=== PATIENT | female | born 1980 | race Caucasian/White ===

== ENCOUNTER 2020-02-09 00:06 | Emergency (ER) | payer BC ==
[~2020-02-09] VITALS: Ht 165.1 cm; Wt 72.5 kg
[2020-02-09] MEDS ORDERED: METOCLOPRAMIDE HCL 10 MG/2 ML VIAL. IVP ONE (00:30)
[2020-02-09] MEDS ORDERED: IV NORMAL SALINE 1,000ML 1,000 ML IV SCH (00:30)
[2020-02-09] MEDS ORDERED: FAMOTIDINE 20 MG/2 ML VIAL IVP ONE (00:45)
[2020-02-09] MEDS ORDERED: CONTRAST GIVEN. MC PRN (01:00)
[2020-02-09] MEDS ORDERED: IOHEXOL 300 MG/ML 75 ML VIAL. IV ONE (01:00)
[2020-02-09] MEDS ORDERED: IOHEXOL 240 MG/ML 50ML VIAL. PO ONE (01:00)
[2020-02-09 01:02] LABS: BASO % 0 % (0-3); EOS # 0.3 x10^3/uL (0.0-0.7); EOS % 6 % (0-3); HEMATOCRIT 36.4 % (36.0-47.0); HEMOGLOBIN 11.5 g/dL (12.0-15.5); LYMPH % 36 % (24-48); MEAN CORPUSCULAR HEMOGLOBIN 27 pg (25-35); MEAN CORPUSCULAR HGB CONC 32 g/dL (31-37); MEAN CORPUSCULAR VOLUME 84 fL (79-100); MONO # 0.5 x10^3/uL (0.0-1.1); MONO % 9 % (0-9); NEUT # 2.7 x10^3uL (1.8-7.7); NEUT % 49 % (31-73); PLATELET COUNT 227 x10^3/uL (140-400); RED BLOOD COUNT 4.32 x10^6/uL (3.50-5.40); RED CELL DISTRIBUTION WIDTH 14.1 % (11.5-14.5); WHITE BLOOD COUNT 5.5 x10^3/uL (4.0-11.0)
[2020-02-09 01:10] LABS: CALCIUM 8.7 mg/dL (8.5-10.1); GFR 62.1; POTASSIUM 3.7 mmol/L (3.5-5.1)
[2020-02-09 01:16] LABS: ALBUMIN 3.4 g/dL (3.4-5.0); TOTAL BILIRUBIN 0.5 mg/dL (0.2-1.0); TOTAL PROTEIN 6.9 g/dL (6.4-8.2)
--- NOTE | 2020-02-09 01:26 | PHYS DOC ---
Past History Past Medical History: No Pertinent History Past Surgical History: Cholecystectomy, Gastric Bypass, Other Additional Past Surgical Histo: sinus surgery Alcohol Use: None General Adult EDM: Chief Complaint: FLANK PAIN HPI: HPI: Patient is a 39 year old female who presents for evaluation of moderate severe right flank and right upper quadrant abdominal pain. Onset of symptoms over the past 1 day. Symptoms particular worse of the past 1/2 hours. Patient had 3 episodes of vomiting. Patient denies any black, bloody or tarry stools. Patient was recently diagnosed with Covid infection on January 28 and just came off quarantine. Patient has a history of prior gastric bypass surgery. Patient was in moderate distress on arrival. Review of Systems: Review of Systems: Constitutional: Denies fever or chills Eyes: Denies change in visual acuity HENT: Denies nasal congestion or sore throat Respiratory: Denies cough or shortness of breath Cardiovascular: Denies chest pain or edema GI: right upper abdominal pain with nausea and vomiting, no bloody stools or diarrhea : Denies dysuria Musculoskeletal: Denies back pain or joint pain Integument: Denies rash Neurologic: Denies headache, focal weakness or sensory changes Endocrine: Denies polyuria or polydipsia Lymphatic: Denies swollen glands Psychiatric: Denies depression or anxiety Current Medications: Current Meds: Current Medications Medications (Trade) Dose Ordered Sig/Pérez Start Time Stop Time Status Last Admin Dose Admin Famotidine (Pepcid Vial) 20 mg 1X ONCE 02/09/20 00:45 02/09/20 00:48 DC 02/09/20 00:50 20 MG Fentanyl Citrate (Fentanyl 2ml Vial) 50 mcg 1X ONCE 02/09/20 01:00 02/09/20 01:01 DC 02/09/20 01:20 50 MCG Info (Do NOT chart on this entry -- for MONITORING) 1 each PRN DAILY PRN 02/09/20 01:00 02/11/20 00:59 Iohexol (Omnipaque 240 Mg/ml) 30 ml 1X ONCE 02/09/20 01:00 02/09/20 01:01 DC Iohexol (Omnipaque 300 Mg/ml) 75 ml 1X ONCE 02/09/20 01:00 02/09/20 01:01 DC Metoclopramide HCl (Reglan Vial) 10 mg 1X ONCE 02/09/20 00:30 02/09/20 00:48 DC 02/09/20 00:46 10 MG Sodium Chloride 1,000 ml @ 1,000 mls/hr Q1H 02/09/20 00:30 02/09/20 01:29 02/09/20 00:48 1,000 MLS/HR Allergies: Allergies: Allergies Coded Allergies Type Severity Reaction Last Updated Verified No Known Allergies Allergy Unknown 02/09/20 Yes Physical Exam: PE: Constitutional: Well developed, well nourished, moderate acute distress. [] HENT: Normocephalic, atraumatic, bilateral external ears normal, oropharynx moist, no oral exudates, nose normal. [] Eyes: PERRL, EOMI, conjunctiva normal, no discharge. [] Neck: Normal range of motion, no tenderness, supple. [] Cardiovascular:Heart rate regular rhythm, no murmur [] Lungs & Thorax: Bilateral breath sounds clear to auscultation [] Abdomen: Bowel sounds diminished, soft, moderate right upper abdominal tenderness, no masses. [] Skin: Warm, dry, no erythema, no rash. [] Back: No tenderness. [] Extremities: No tenderness, no cyanosis, ROM intact, no edema. [] Neurologic: Alert and oriented, normal motor function, normal sensory function, no focal deficits noted. [] Psychologic: Affect normal, judgement normal, mood abnormal. [] Current Patient Data: Labs: Laboratory Tests Test 02/09/20 00:40 White Blood Count 5.5 x10^3/uL (4.0-11.0) Red Blood Count 4.32 x10^6/uL (3.50-5.40) Hemoglobin 11.5 g/dL (12.0-15.5) L Hematocrit 36.4 % (36.0-47.0) Mean Corpuscular Volume 84 fL (79-100) Mean Corpuscular Hemoglobin 27 pg (25-35) Mean Corpuscular Hemoglobin Concent 32 g/dL (31-37) Red Cell Distribution Width 14.1 % (11.5-14.5) Platelet Count 227 x10^3/uL (140-400) Neutrophils (%) (Auto) 49 % (31-73) Lymphocytes (%) (Auto) 36 % (24-48) Monocytes (%) (Auto) 9 % (0-9) Eosinophils (%) (Auto) 6 % (0-3) H Basophils (%) (Auto) 0 % (0-3) Neutrophils # (Auto) 2.7 x10^3uL (1.8-7.7) Lymphocytes # (Auto) 2.0 x10^3/uL (1.0-4.8) Monocytes # (Auto) 0.5 x10^3/uL (0.0-1.1) Eosinophils # (Auto) 0.3 x10^3/uL (0.0-0.7) Basophils # (Auto) 0.0 x10^3/uL (0.0-0.2) Sodium Level 138 mmol/L (136-145) Potassium Level 3.7 mmol/L (3.5-5.1) Chloride Level 102 mmol/L (98-107) Carbon Dioxide Level 24 mmol/L (21-32) Anion Gap 12 (6-14) Blood Urea Nitrogen 14 mg/dL (7-20) Creatinine 1.0 mg/dL (0.6-1.0) Estimated GFR (Cockcroft-Gault) 62.1 BUN/Creatinine Ratio 14 (6-20) Glucose Level 149 mg/dL (70-99) H Calcium Level 8.7 mg/dL (8.5-10.1) Total Bilirubin 0.5 mg/dL (0.2-1.0) Aspartate Amino Transferase (AST) 30 U/L (15-37) Alanine Aminotransferase (ALT) 26 U/L (14-59) Alkaline Phosphatase 86 U/L (46-116) Total Protein 6.9 g/dL (6.4-8.2) Albumin 3.4 g/dL (3.4-5.0) Albumin/Globulin Ratio 1.0 (1.0-1.7) Lipase 147 U/L (73-393) Vital Signs: Vital Signs Date Time Temp Pulse Resp B/P (MAP) Pulse Ox O2 Delivery O2 Flow Rate FiO2 02/09/20 01:20 99 02/09/20 01:11 Room Air 02/09/20 00:06 97.6 56 16 119/74 (89) EKG: EKG: [] Radiology/Procedures: Radiology/Procedures: [] Heart Score: Risk Factors: Risk Factors: DM, Current or recent (<one month) smoker, HTN, HLP, family history of CAD, obesity. Risk Scores: Score 0 - 3: 2.5% MACE over next 6 weeks - Discharge Home Score 4 - 6: 20.3% MACE over next 6 weeks - Admit for Clinical Observation Score 7 - 10: 72.7% MACE over next 6 weeks - Early Invasive Strategies Course & Med Decision Making: Course & Med Decision Making Pertinent Labs and Imaging studies reviewed. (See chart for details) [] Yaya Disclaimer: Yaya Disclaimer: This electronic medical record was generated, in whole or in part, using a voice recognition dictation system. 0122 patient has refused to take oral contrast. She states that she is quite sure that this is not a gastric leak. I advised her that refusing oral contrast could result in a ct abd/pelvis scan that may not diagnose an emergency c ondition related to her prior gastric bypass surgery. 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 0254 as requested by patient the [facility] was contacted. I talked to the transfer line and gave a full report. Currently they are on high-volume. They will look for a bed and when one is available they will contact us back. Patient did not want to transfer to any other facility at this time. In the meantime patient is medically stable. She has not yet given us a urine sample. 0310 patient aware that [facility] could be a several hour wait. She says that she does not want to wait that long. She is requested that we call another hospital to see if they have a bed available. [facility] transfer line will be called at this time. I called and Dr. Neal is aviation technical systems specialist pending bed availability. However, they need a current Covid test. That means patient could be transferred to [facility] and wait and their ED pending a Covid test. If that test is still positive they would then transfer her over to [facility]. They have not accepted the patient yet but will call us back 0330 Dr. Solorzano from [facility] surgery called to discuss case. He did not want to accept the patient now. He requested that we admit the patient to an internal medicine service and call them in 3 days if the patient is not better. 0340 patient has changed her mind again. She wants to see if there is a bed available at [facility]. Patient states that she does not want to be admitted to [facility]. That would be her ultimate receiving hospital if she was Covid positive in the ER at [facility] 0358 there is a bed available at [facility] and patient would prefer to go there at this time. The on-call for hospitalist service was called to discuss case. Dr. Smallwood would be the accepting hospitalist. 0405 Dr. Smallwood called back to discuss case. He will accept case on the condition that we talk to general surgery aviation technical systems specialist at [facility]. If they accept the consult he will accept the patient in transfer 0411 Dr. Calix call back for general surgery. He will see patient in consult. Patient will admitted to internal medicine service under the care of Dr. Smallwood. 0415 patient refused ambulance transport. She will be transported by family via private vehicle. She was advised that refusing ambulance transfer could result in a crash, or disability. Because we knew she was never going to take an ambulance we did not start a nasogastric tube in this ER Departure Departure: Impression: Primary Impression: Right sided abdominal pain Additional Impressions: Partial bowel obstruction Qualified Codes: K56.600 - Partial intestinal obstruction, unspecified as to cause History of gastric bypass Disposition: 05 DC/TRF OTHER TYPE INSTITUTI (Dr. Smallwood accepted for Hospitalist service) Condition: STABLE Referrals: JULIO LAM (PCP) RADHA SWAN DO Feb 09, 2020 01:25
[2020-02-09 01:58] LABS: PREG TEST PT QUAL NEGATIVE (NEG)
--- NOTE | 2020-02-09 02:45 | RAD ---
CT SCAN OF THE ABDOMEN AND PELVIS WITH IV CONTRAST. History: Reason: RUQ abd pain, hx gastric bypass surgery / Spl. Instructions: OMNI 300, 75ml / History: Comparison:None. Procedure: Contiguous axial images of the abdomen and pelvis were performed after the administration of 75 cc of Omni 300 IV contrast. Oral contrast: No. Findings: There is evidence of gastric bypass. The appendix is normal. The gallbladder has been removed. There is mild wall thickening of the distal sigmoid colon and there is distention of the remaining colon. Liver: Mild to moderate periportal edema Spleen: Unremarkable Pancreas: Unremarkable Adrenal Glands: Unremarkable Kidneys: Unremarkable There is no mass or lymphadenopathy. There is no free air. There is mild free fluid in the pelvis. The urinary bladder appears normal. Impression: 1. Periportal edema in the liver. This is nonspecific but can be secondary to hepatitis. Per 2. Short segment of mild wall thickening of the distal sigmoid colon could be colitis or adenocarcinoma. There is distention of the remaining colon consistent with obstructive changes. 3. Mild free fluid in the pelvis. End impression PQRS Compliance Statement: One or more of the following individualized dose reduction techniques were utilized for this examination: 1. Automated exposure control 2. Adjustment of the mA and/or kV according to patient size 3. Use of iterative reconstruction technique Electronically signed by: Shlomo Islas III, MD (02/09/2020 2:42 AM) [facility]
[2020-02-09 04:35] VITALS: BP 112/68
== END 2020-02-09 04:35 | disposition short-term general hospital (02) ==
LOC: ER 00:06
DX: K56.600 Partial intestinal obstruction, unspecified as to cause (principal); Z98.84 Bariatric surgery status; Z90.49 Acquired absence of other specified parts of digestive tract; R11.2 Nausea with vomiting, unspecified
CPT/HCPCS: 36415; 74177; 80053; 83690; 84703; 85025; 96361; 96374; 96375; 96376; 99285; J2765; J3010; J3490; J7030; Q9967